=== PATIENT | female | born 1980 | race Two or more races ===

== ENCOUNTER 2019-12-16 04:38 | Emergency (ER) | payer MEDICAID ==
[~2019-12-16] VITALS: Ht 149.9 cm; Wt 45.4 kg
[2019-12-16 05:14] LABS: BASOPHILS # (AUTO) 0.2 /CMM (0.0-0.2); BASOPHILS % (AUTO) 0.9 % (0.0-2.0); EOSINOPHILS % (AUTO) 0.6 % (0.0-6.0); HEMATOCRIT 29 % (33-45); HEMOGLOBIN 9.3 g/dL (11.5-14.8); LYMPHOCYTES # (AUTO) 1.2 /CMM (0.8-4.8); MEAN CORPUSCULAR HGB CONC 32 g/dl (31.0-36.0); MEAN CORPUSCULAR VOLUME 81 fL (82-100); MONOCYTES # (AUTO) 1.7 /CMM (0.1-1.30); MONOCYTES % (AUTO) 9.2 % (2.0-12.0); NEUTROPHILS # (AUTO) 14.8 /CMM (1.8-8.9); NEUTROPHILS % (AUTO) 82.3 % (43.0-81.0); PLATELET COUNT (AUTO) 515 /CMM (150-450); RED BLOOD CELL COUNT(AUTO) 3.57 MIL/uL (4.0-5.2); WHITE BLOOD COUNT (AUTO) 17.9 K/uL (4.3-11.0)
--- NOTE | 2019-12-16 05:16 | NUR ---
PATIENT CAME TO ER BED 9 BIB RA FROM [facility] [[email or web address] FOR MIDSTERNAL CHEST PAIN RADIATING TO THE LEFT ARM TO THE UPPER BACK LEFT SHOULDER. PATIENT STATES THAT SHE HURTS ALL OVER. PATIENT HAS A LEFT UPPER ARM PICC LINE BUT IS UNSURE WHEN IT WAS PLACED. PATIENT IS AAOX4. NO SOB. BREATHING EVENLY AND UNLABORED ON ROOM AIR. CONNECTED TO MONITOR.
[2019-12-16 05:35] LABS: ALANINE AMINOTRANSFERASE 14 U/L (12-78); ALBUMIN 2.2 g/dL (3.4-5.0); ALKALINE PHOSPHATASE 168 U/L (46-116); ASPARTATE AMINOTRANSFERASE 24 U/L (15-37); BILIRUBIN,DIRECT 0.3 mg/dL (0.0-0.2); BILIRUBIN,TOTAL 0.9 mg/dL (0.2-1.0); CALCIUM, SERUM 8.3 mg/dL (8.5-10.1); CARBON DIOXIDE 25 mmol/L (21-32); CHLORIDE 96 mmol/L (98-107); CREATININE 0.5 mg/dL (0.6-1.3); GLUCOSE 107 mg/dL (74-106); POTASSIUM 4.3 mmol/L (3.5-5.1); SODIUM SERUM 128 mmol/L (136-145); UREA NITROGEN, BLOOD 5 mg/dL (7-18)
--- NOTE | 2019-12-16 06:07 | NUR ---
LEFT PICC LINE IS PATENT.
[2019-12-16] MEDS ORDERED: PIPERACILLIN /TAZOBACTAM 3.375 G VIAL IV ONE (06:17)
--- NOTE | 2019-12-16 06:18 | NUR ---
DR HI ON PHONE WITH OTHER .
--- NOTE | 2019-12-16 06:20 | NUR ---
PATIENT IS COMPLAINING OF NAUSEA. MD NOTIFIED.
[2019-12-16] MEDS ORDERED: ONDANSETRON HCL/PF 4 MG/2 ML VIAL ONE (06:23)
[2019-12-16] MEDS ORDERED: IV NS 0.9% 1,000 ML IV ONE (06:30)
[2019-12-16] MEDS ORDERED: PIPERACILLIN /TAZOBACTAM 3.375 G in IV D5W 50 ML IV ONE (06:30)
[2019-12-16] MEDS ORDERED: ONDANSETRON HCL/PF 4 MG/2 ML VIAL IV ONE (06:30)
--- NOTE | 2019-12-16 07:26 | NUR ---
REPORT GIVEN TO ANUP COLON FOR SARAH.
--- NOTE | 2019-12-16 08:37 | NUR ---
SPOKE TO [facility], INFORMED THAT [facility] ALREADY RECEIVED RESULTS FOR COVID. WILL FOLLOW US UP IF PATIENT IS ACCEPTED. CALLBACK #: [phone] Addendum: 12/16/19 at 0917 by WINSTON SPOKE TO [facility], INFORMED THAT [facility] ALREADY RECEIVED RESULTS FOR COVID. WILL FOLLOW US UP IF PATIENT IS ACCEPTED. CALLBACK #: [phone]
--- NOTE | 2019-12-16 10:22 | NUR ---
informed by nata that pt is accepted at [facility].
--- NOTE | 2019-12-16 10:26 | NUR ---
nata will call back with transportation eta
--- NOTE | 2019-12-16 10:50 | NUR ---
ambulance eta 1hr -[facility] [phone] [facility]: Nestor Xie MD: Dr. Joya ER first for covid clearance then Tele Floor after
--- NOTE | 2019-12-16 11:51 | NUR ---
REPORT GIVEN TO EZEQUIEL COLON OF [facility]
[2019-12-16 11:54] VITALS: BP 105/71
--- NOTE | 2019-12-16 11:55 | NUR ---
PICKED UP BY [facility] IN STABLE CONDITION. VITAL SIGNS TAKEN AND RECORDED. PROVIDED CLINICALS AND CD IMAGES TO EMT TO BE GIVEN TO THE HOSPITAL.
== END 2019-12-16 11:57 | disposition short-term general hospital (02) ==
LOC: ER 04:44
DX: J18.9 Pneumonia, unspecified organism (principal); J91.8 Pleural effusion in other conditions classified elsewhere; E87.1 Hypo-osmolality and hyponatremia; D72.829 Elevated white blood cell count, unspecified; Z20.828 Contact with and (suspected) exposure to other viral communicable diseases; R00.0 Tachycardia, unspecified; Z90.49 Acquired absence of other specified parts of digestive tract; F41.8 Other specified anxiety disorders; Z87.898 Personal history of other specified conditions
CPT/HCPCS: 36415; 71045; 80048; 80076; 84484; 85025; 87081; 87426; 93005; 96365; 96375; 99285; C9803; J2405; J2543; J7060